=== PATIENT | male | born 1995 | race Two or more races ===

== ENCOUNTER 2018-11-27 22:55 | Emergency (ER) | payer SELFPAY ==
[~2018-11-27] VITALS: Ht 180.3 cm; Wt 83.9 kg
[2018-11-27 23:06] VITALS: BP 162/80
[2018-11-27] MEDS ORDERED: MORPHINE SULFATE 10 MG/ML VIAL. IM ONE (23:45)
[2018-11-27] MEDS ORDERED: silver sulfADIAZINE 1% CREAM 25GM TUBE. TP ONE (23:45)
[2018-11-27] MEDS ORDERED: LIDOCAINE 2% 20 ML VIAL. IJ ONE (23:45)
--- NOTE | 2018-11-28 00:41 | RAD ---
EXAM: PA, oblique and lateral views of the right hand DATE: 11/27/2018 11:15 PM INDICATION: Trauma COMPARISON: No Prior FINDINGS/ IMPRESSION: 1. Laceration at the base of the thumb with a few punctate radiopaque densities possibly retained foreign bodies. 2. No underlying osseous abnormality. No evidence of acute fracture or dislocation. Electronically signed by: Marvin Fatih MD (11/28/2018 12:38 AM) [facility]
[2018-11-28] MEDS ORDERED: CEPH500C PO (01:04)
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
[2018-11-28] MEDS ORDERED: HYDROcodone/APAP 5/325MG 1 TAB TABLET PO ONE (01:30)
== END 2018-11-28 01:20 | disposition home or self-care (01) ==
LOC: ER 22:55
DX: S61.411A Laceration without foreign body of right hand, initial encounter (principal); W39.XXXA Discharge of firework, initial encounter; Y93.89 Activity, other specified; Y92.89 Other specified places as the place of occurrence of the external cause; Y99.8 Other external cause status
CPT/HCPCS: 12002; 73130; 99284; J2001; J2270

== ENCOUNTER 2018-12-13 15:56 | Emergency (ER) | payer SELFPAY ==
[~2018-12-13] VITALS: Ht 170.2 cm; Wt 83.9 kg
[~2018-12-13 15:56] MED LIST: CEPH500C PO
[2018-12-13 16:59] VITALS: BP 162/80
[2018-12-13] MEDS ORDERED: MUPI22OI2 TP (17:25)
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
[2018-12-13] MEDS ORDERED: NEOMY/BACITR/POLYMYXIN OINT PACKET. TP ONE (17:30)
== END 2018-12-13 17:29 | disposition home or self-care (01) ==
LOC: ER 15:56
DX: S61.411D Laceration without foreign body of right hand, subsequent encounter (principal); W39.XXXD Discharge of firework, subsequent encounter
CPT/HCPCS: 99283

== ENCOUNTER 2021-02-04 21:24 | Emergency (ER) | payer SELFPAY ==
[~2021-02-04] VITALS: Ht 175.3 cm; Wt 118.0 kg
[~2021-02-04 21:24] MED LIST changes: +MUPI22OI2 TP
[2021-02-04 21:35] VITALS: BP 156/80
[2021-02-04] MEDS ORDERED: DIPH,PERTUSS(ACELL),TET VAC/PF 0.5 ML SYRINGE. VAX IM ONE (22:00)
[2021-02-04] MEDS ORDERED: IBUPROFEN 200 MG TABLET. PO ONE (22:00)
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
--- NOTE | 2021-02-04 22:20 | RAD ---
Exam: Right hand 3 views INDICATION: Nail through thenar eminence TECHNIQUE: Frontal, lateral and oblique views of the right hand Comparisons: None FINDINGS: Small radiopaque densities seen in the soft tissues of the thenar eminence. Bone mineralization is no rmal. No acute or healed fractures. Joint spaces are well-maintained. IMPRESSION: No acute osseous abnormality. Tiny densities projecting the soft tissues overlying the first metacarp al, may relate to retained foreign bodies. Electronically signed by: Pepe Orellana MD (02/04/2021 10:17 PM) [facility]
[2021-02-04] MEDS ORDERED: CEPH500C PO (22:35)
[2021-02-04] MEDS ORDERED: CEPHALEXIN 250 MG CAPSULE. PO ONE (23:00)
== END 2021-02-04 23:04 | disposition home or self-care (01) ==
LOC: ER 21:24
DX: S69.91XA Unspecified injury of right wrist, hand and finger(s), initial encounter (principal); F17.200 Nicotine dependence, unspecified, uncomplicated; W29.4XXA Contact with nail gun, initial encounter; Y93.89 Activity, other specified; Y92.89 Other specified places as the place of occurrence of the external cause; Y99.8 Other external cause status
CPT/HCPCS: 73130; 90471; 90715; 99283